=== PATIENT | female | born 1965 | race Caucasian/White ===

== ENCOUNTER 2021-10-05 19:34 | Emergency (ER) | payer BC ==
[~2021-10-05] VITALS: Ht 162.6 cm; Wt 74.8 kg
[2021-10-05 19:54] VITALS: BP_SYST 132
--- NOTE | 2021-10-05 20:04 | NUR ---
Patient to ER bed 1 to gown for evaluation. Side rails up. Report given to ERICK ECHOLS.
[2021-10-05] MEDS ORDERED: LIDOCAINE/EPI 1% 1:100000 20 ML VIAL INJ ONE (21:00)
[2021-10-05] MEDS ORDERED: SULF1TAB48 PO (22:05)
[2021-10-05 22:13] VITALS: BP_SYST 122
--- NOTE | 2021-10-05 22:13 | NUR ---
PATIENT VERBALIZED UNDERSTANDING OF EDUCATION, NO FURTHER QUESTIONS. PATIENT LEFT WITH ALL BELONGINGS, PRESCRIPTION, AND AFTERCARE INSTRUCTIONS. PATIENT WALKS WITH STRONG GAIT.
== END 2021-10-05 22:13 | disposition home or self-care (01) ==
LOC: SED 19:34
DX: L02.411 Cutaneous abscess of right axilla (principal)
CPT/HCPCS: 99283

== ENCOUNTER 2021-10-07 20:20 | Emergency (ER) | payer BC ==
[~2021-10-07] VITALS: Ht 162.6 cm; Wt 74.8 kg
[~2021-10-07 20:20] MED LIST: SULF1TAB48 PO
--- NOTE | 2021-10-07 20:20 | NUR ---
Pt brought by self, A&Ox4, pt presents to ER for wound check on R armpit after incision and drainage 2 days ago, pt afebrile, skin pink and warm, cap refill <3, VSS, respirations even and unlabored.
[2021-10-07 20:37] VITALS: BP_SYST 120
--- NOTE | 2021-10-07 23:45 | NUR ---
PT CAME TO THE ED FOR WOUND EVALUATION S/P ABCESS INCISION AND DRAINAGE A FEW DAYS AGO. PT WOUND UNDER RIGHT ARMPIT HAS XEROFORM PACKING INSIDE, WITH SWELLING AND MILD REDNESS, NO DRAINAGE OBSERVED. PT DENIES ANY PAIN AT THE SITE. PT REPORTS KEEPING WOUND CLEAN, DRY, AND CHANGING THE DRESSING DAILY. MD AT THE BEDSIDE FOR EVALUATION.
--- NOTE | 2021-10-08 00:19 | NUR ---
PT WOUND COVERED WITH CLEAN GAUZE AND PAPER TAPE PER MD REQUEST. PT TOLERATED WELL. PT PROVIDED WITH VERBAL AND WRITTEN DISCHARGE DOCUMENTS. PT ADVISED TO KEEP THE WOUND AND BANDAGE CLEAN. PT ENCOURAGED TO GENTLY CLEAN THE WOUND WITH SOAP AND WATER, AND TO SHOWER BUT AVAID WEARING DEODORANT AT THE WOUND SITE. PT VERBALIZED UNDERSTANDING. ALL QUESTIONS ANSWERED. PT LEFT ED, IN STABLE CONDITION WITH STEADY GAIT.
[2021-10-08 00:57] VITALS: BP_SYST 120
== END 2021-10-08 00:58 | disposition home or self-care (01) ==
LOC: SED 20:20
DX: Z48.00 Encounter for change or removal of nonsurgical wound dressing (principal)
CPT/HCPCS: 99281

== ENCOUNTER 2022-07-27 00:17 | Emergency (ER) | payer BC ==
[~2022-07-27] VITALS: Ht 162.6 cm; Wt 77.1 kg
[2022-07-27 00:24] VITALS: BP_SYST 140
[2022-07-27] MEDS: PROPOFOL 200MG/ 20ML VIAL (DIPRIVAN) IV ONE (03:21)
[2022-07-27] MEDS ORDERED: NAPR-690 PO (03:25)
[2022-07-27 03:29] VITALS: BP_SYST 144
== END 2022-07-27 03:29 | disposition home or self-care (01) ==
LOC: SED 00:17
DX: S43.005A Unspecified dislocation of left shoulder joint, initial encounter (principal); Z79.899 Other long term (current) drug therapy; X50.0XXA Overexertion from strenuous movement or load, initial encounter; Y93.89 Activity, other specified; Y92.89 Other specified places as the place of occurrence of the external cause; Y99.8 Other external cause status
CPT/HCPCS: 73030; 99285; J2704